=== PATIENT | female | born 1995 | race Caucasian/White ===

== ENCOUNTER 2017-07-04 15:13 | Emergency (ER) | payer OTHER ==
[~2017-07-04] VITALS: Ht 160 cm; Wt 89.0 kg
[2017-07-04 15:21] VITALS: BP 150/98; PULSE 96; RESP 16; TEMP 98.1; O2SAT 96
[2017-07-04] MEDS ORDERED: predniSONE 20 MG TAB PO ONE (15:45)
[2017-07-04] MEDS: RESP: ALBUTEROL 2.5 MG/3 ML NEB (SCH) INH (16:02)
[2017-07-04 16:04] VITALS: O2SAT 96
[2017-07-04] MEDS ORDERED: VENTAER INH (16:25)
[2017-07-04] MEDS ORDERED: BENZ100 PO (16:25)
[2017-07-04] MEDS ORDERED: PRED50 PO (16:25)
[2017-07-04] MEDS ORDERED: AZIT250T3 PO (16:25)
--- NOTE | 2017-07-04 16:27 | PD ---
HPI Chief Complaint: Respiratory Symptoms Time Seen by Provider: 15:42 Travel History International Travel<30 days: No Contact w/Intl Traveler<30days: No Traveled to known affect area: No History of Present Illness HPI This is a 21-year-old female here with productive cough and wheezing 3 days. She reports the cough is been present for well over a week. Subjective fevers but no chills. Symptom severity is moderate. No aggravating or alleviating factors. Patient is a non-smoker. She does have frequent exposure to secondhand smoke. History of asthma but not currently using bronchodilators. Has never been hospitalized or intubated for her asthma. PFSH Past Medical History Asthma: Yes (as a child) Diminished Hearing: No Reproductive: Yes (ovarian cyst ) Respiratory: Yes (asthma) Tetanus Vaccination: < 5 Years Influenza Vaccination: Yes ?: Not LMP: 06/25/17 Past Surgical History Surgical History: No Previous Surgery Social History Alcohol Use: Yes (rare) Tobacco Use: No Substance Use: No Allergies-Medications (Allergen,Severity, Reaction): Coded Allergies: Penicillins (Verified Allergy, Severe, Anaphylaxis, 07/04/17) Reported Meds & Prescriptions Reported Meds & Active Scripts Active Tessalon Perles (Benzonatate) 100 Mg Cap 200 Mg PO TID PRN Ventolin Hfa 18 GM Inh (Albuterol Sulfate) 90 Mcg/Act Aer 2 Puff INH Q4-6H PRN Prednisone 50 Mg Tab 50 Mg PO DAILY 5 Days Azithromycin 250 Mg Tab 250 Mg PO DIRECTED Take 2 tabs (500 mg) on day 1 then 1 tab daily x 4 days. Review of Systems Except as stated in HPI: all other systems reviewed are Neg Eyes: No: Visual changes HENT: No: Headaches Cardiovascular: No: Chest Pain or Discomfort Respiratory: Positive: Cough, Wheezing Gastrointestinal: No: Abdominal Pain Genitourinary: No: Dysuria Physical Exam Narrative GENERAL: Alert, well-appearing 21-year-old female. No distress. SKIN: Warm and dry. HEAD: Normocephalic. EYES: No scleral icterus. No injection or drainage. NECK: Supple, trachea midline. CARDIOVASCULAR: Regular rate and rhythm without murmurs, gallops, or rubs. RESPIRATORY: Breath sounds equal bilaterally. No accessory muscle use. Coarse breath sounds with expiratory wheeze. No respiratory distress. GASTROINTESTINAL: Abdomen soft, non-tender, nondistended. MUSCULOSKELETAL: No cyanosis, or edema. BACK: Nontender without obvious deformity. No CVA tenderness. Data Data Last Documented VS Vital Signs Date Time Temp Pulse Resp B/P (MAP) Pulse Ox O2 Delivery O2 Flow Rate FiO2 07/04/17 16:04 96 21 07/04/17 15:21 98.1 96 16 150/98 (115) Orders Orders Albuterol Neb (Albuterol Neb) (07/04/17 15:45) Prednisone (Deltasone) (07/04/17 15:45) MDM Medical Decision Making Medical Screen Exam Complete: Yes Emergency Medical Condition: Yes Differential Diagnosis Bronchitis, pneumonia, asthma exacerbation, reactive airway Narrative Course 21-year-old female here with cough and wheezing for several days. Patient has a history of asthma not currently on any medications. She has coarse breath sounds with expiratory wheezes. She was given 60 mg of oral prednisone and albuterol nebulizer 2. On reexam wheezing has significantly improved. Patient reports symptom improvement. No respiratory distress. Good air movement. No hypoxia. She is stable and ready for discharge. Diagnosis Primary Impression: Bronchitis Additional Impression: Asthma exacerbation Qualified Codes: J45.21 - Mild intermittent asthma with (acute) exacerbation Referrals: Primary Care Physician Departure Forms: Tests/Procedures, Work Release Enter return to work date: Jul 08, 2017 Additional Instructions: Steroids as directed. Albuterol inhaler as directed. Follow up with your primary doctor. Return if you develop new or worsening symptoms. Scripts Benzonatate (Tessalon Perles) 100 Mg Cap 200 MG PO TID Y for COUGH, #15 CAP 0 Refills Prov: Riya Queen MACHINE SET UP 07/04/17 Albuterol 18 GM Inh (Ventolin Hfa 18 GM Inh) 90 Mcg/Act Aer 2 PUFF INH Q4-6H Y for SHORTNESS OF BREATH, #1 INHALER 0 Refills Prov: Riya Queen MACHINE SET UP 07/04/17 Prednisone (Prednisone) 50 Mg Tab 50 MG PO DAILY for 5 Days, #5 TAB 0 Refills Prov: Riya Queen MACHINE SET UP 07/04/17 Azithromycin (Azithromycin) 250 Mg Tab 250 MG PO DIRECTED for Infection, #6 TAB 0 Refills Take 2 tabs (500 mg) on day 1 then 1 tab daily x 4 days. Prov: LeeRiya michaud 07/04/17 Disposition: 01 DISCHARGE HOME Condition: Stable Riya Queen Jul 04, 2017 16:27
== END 2017-07-04 16:43 | disposition home or self-care (01) ==
LOC: PHEFT 15:13
DX: J45.901 Unspecified asthma with (acute) exacerbation (principal); Z88.0 Allergy status to penicillin
CPT/HCPCS: 94640; 94664; 99283; J7512; J7613